=== PATIENT | female | born 1965 | race Asian ===

== ENCOUNTER 2023-04-04 14:28 | Outpatient (CLI) | payer BC, SELFPAY | END 2023-04-04 14:29 | disposition home or self-care (01) | PROVIDERS: PCP Emergency Medicine; Referring Provider Emergency Medicine; Visit Provider Emergency Medicine | DX: Z00.00 Encounter for general adult medical examination without abnormal findings (principal); Z11.59 Encounter for screening for other viral diseases; Z13.1 Encounter for screening for diabetes mellitus; Z11.1 Encounter for screening for respiratory tuberculosis; Z13.6 Encounter for screening for cardiovascular disorders | CPT/HCPCS: 80053; 80061; 86480; 86706; 86803; 87340 ==

== ENCOUNTER 2023-07-21 14:30 | Outpatient (CLI) | payer BC, SELFPAY | END 2023-07-21 14:31 | disposition home or self-care (01) | LOC: NFLDREF 07-25 07:21 | PROVIDERS: PCP Emergency Medicine; Referring Provider Emergency Medicine; Visit Provider Emergency Medicine | DX: Z13.220 Encounter for screening for lipoid disorders (principal) | CPT/HCPCS: 80061; 84443 ==

== ENCOUNTER 2025-06-28 15:55 | Outpatient (CLI) | payer BC, SELFPAY | END 2025-06-28 15:56 | disposition home or self-care (01) | PROVIDERS: PCP Physician Assistant Medical; Visit Provider Physician Assistant Medical | DX: Z00.00 Encounter for general adult medical examination without abnormal findings (principal) | CPT/HCPCS: 80053; 80061; 84443 ==

== ENCOUNTER 2025-08-26 15:47 | Outpatient (CLI) | payer BC, SELFPAY | END 2025-08-26 15:48 | disposition home or self-care (01) | LOC: LKVREF 15:48 | PROVIDERS: PCP Physician Assistant Medical; Visit Provider Physician Assistant Medical | DX: Z00.00 Encounter for general adult medical examination without abnormal findings (principal) | CPT/HCPCS: 80061; 80076 ==